=== PATIENT | female | born 1995 | race American Indian/Alaskan Native ===

== ENCOUNTER 2019-05-30 14:52 | Emergency (ER) | payer SELFPAY ==
[2019-05-30 15:11] VITALS: BP 107/69
--- NOTE | 2019-05-30 15:14 | Event Note ---
ED Screening Note Date of service: 05/30/19 Time: 15:09 ED Screening Note: This is a 23 y.o. F. that presents to the ER with chest pain and dizziness and physical for a job at the [employer]. LMP 05/11/2019 This initial assessment/diagnostic orders/clinical plan/treatment(s) is/are celis bject to change based on patients health status, clinical progression and re- assessment by fellow clinical providers in the ED. Further treatment and workup at subsequent clinical providers discretion. Patient/guardian urged not to elope from the ED as their condition may be serious if not clinically assessed and managed. Initial orders include: Accucheck 135 EKG CXR
--- NOTE | 2019-05-30 16:00 | XRay Report ---
CHEST 1 VIEW INDICATION: Chest Pain. COMPARISON: None FINDINGS: Support devices: None. Heart: Within normal limits. Lungs/Pleura: No acute air space or interstitial disease. Additional findings: None. IMPRESSION: No acute findings. Signer Name: Ronald Redd Jr, MD Signed: 05/30/2019 3:56 PM Workstation Name: [id number]
--- NOTE | 2019-05-30 18:43 | Emergency Department Report ---
HPI - General Chief Complaint: Chest Pain Time Seen by Provider: 05/30/19 15:09 - HPI HPI: 23-year-old female presents to the emergency department with complaint of having some midsternal chest pain, shortness of breath and lightheadedness that occurred earlier while doing some exercise for the first time in a long time. The patient also thinks that she could have been dehydrated. At the time of my examination she is asymptomatic. She denies any past medical history. She denies any tobacco or illicit drug use. No recent travel or sick contacts at home. She did not take anything for her symptoms prior to arrival today. ED Past Medical Hx - Past Medical History Previous Medical History?: No - Surgical History Past Surgical History?: No - Social History Smoking Status: Never Smoker Substance Use Type: None - Medications Home Medications: Home Medications Medication Instructions Recorded Confirmed Last Taken Type Acyclovir [Zovirax Tab] 800 mg PO Q4H #35 tab 06/20/13 Unknown Rx Ciprofloxacin [Cipro] 500 mg PO Q12H #20 tab 06/20/13 Unknown Rx metroNIDAZOLE [Flagyl] 2,000 mg PO ONCE #2 dose 06/20/13 Unknown Rx ED Review of Systems ROS: Stated complaint: CHEST PAIN/LIGHT HEADED Other details as noted in HPI Comment: All other systems reviewed and negative Constitutional: denies: chills, fever Respiratory: shortness of breath (resolved). denies: cough Cardiovascular: chest pain (resolved). denies: edema Gastrointestinal: denies: abdominal pain, vomiting Musculoskeletal: denies: back pain, arthralgia Neurological: denies: headache, weakness Physical Exam - Physical Exam Vital Signs: Vital Signs 05/30/19 15:09 Temperature 98.6 F Pulse Rate 104 H Respiratory 18 Rate Blood Pressure 107/69 O2 Sat by Pulse 100 Oximetry Physical Exam: GENERAL: The patient is well-developed well-nourished. HENT: Normocephalic. Atraumatic. Patient has moist mucous membranes. EYES: Extraocular motions are intact. NECK: Supple. Trachea is midline. CHEST/LUNGS: Clear to auscultation. There is no respiratory distress noted. HEART/CARDIOVASCULAR: Regular. There is no tachycardia. There is no murmur. ABDOMEN: There is no abdominal distention. SKIN: Skin is warm and dry. NEURO: The patient is awake, alert, and oriented. The patient is cooperative. The patient has no focal neurologic deficits. Normal speech. MUSCULOSKELETAL: There is no tenderness or deformity. There is no limitation range of motion. There is no evidence of acute injury. ED Course Vital Signs 05/30/19 15:09 Temperature 98.6 F Pulse Rate 104 H Respiratory 18 Rate Blood Pressure 107/69 O2 Sat by Pulse 100 Oximetry ED Medical Decision Making - EKG Data -: EKG Interpreted by Me EKG shows normal: sinus rhythm, axis, intervals, QRS complexes, ST-T waves Rate: normal - EKG Data When compared to previous EKG there are: previous EKG unavailable - Radiology Data Radiology results: image reviewed interpreted by me: Chest x-ray does not show any acute process. There are no pleural effusions, obvious pneumonia and there is no pneumothorax. - Medical Decision Making This patient presented with some midsternal chest pain and shortness of breath and lightheadedness while completing some type of physical therapy or new exercise. EKG did not show any signs of ST elevation [place], ischemia or dysrhythmia. Chest x-ray did not show any pneumothorax, focal consolidation, pneumonia, pleural effusions, or any other acute process. At the time of my examination the patient is asymptomatic. Vital signs stable throughout her ED course. She is very low risk for coronary artery disease. She will be discharged home to follow up with primary care and will return to the ER with any worsening of her symptoms or any acute distress. - Differential Diagnosis costochondritis, dysrhythmia, [place], GERD Critical Care Time: No Critical care attestation.: If time is entered above; I have spent that time in minutes in the direct care of this critically ill patient, excluding procedure time. ED Disposition Clinical Impression: Non-cardiac chest pain Disposition: DC-01 TO HOME OR SELFCARE Is pt being admited?: No Condition: Stable Instructions: Chest Pain (ED) Additional Instructions: Please follow-up with a primary care physician in the next few days. Return to the emergency department with any return or worsening of your symptoms, or with any acute distress. Referrals: RHINA MORELAND MD [Staff Physician] - 2-3 Days [facility] [Outside] - 2-3 Days Time of Disposition: 18:43
== END 2019-05-30 19:35 | disposition home or self-care (01) ==
LOC: ED 14:52
DX: R07.2 Precordial pain (principal); R06.02 Shortness of breath; R42 Dizziness and giddiness; Z79.899 Other long term (current) drug therapy
CPT/HCPCS: 71045; 82962; 93005; 93010

== ENCOUNTER 2020-01-06 17:05 | Emergency (ER) | payer SELFPAY ==
[2020-01-06 17:19] VITALS: BP 138/82
--- NOTE | 2020-01-06 17:45 | Emergency Department Report ---
Chief Complaint: Medical Clearance Stated Complaint: STD CHECK Time Seen by Provider: 01/06/20 17:43 - HPI History of Present Illness: Patient is a 24-year-old female presents emergency room for HIV testing and STD testing. She is currently asymptomatic. She denies any vaginal discharge, pelvic pain, abdominal pain, dysuria, nausea, vomiting, fever. She states that her partner had another partner with STD-like symptoms. She does not have any symptoms but just wants to be checked. No allergies to medications. Patient is presenting to the emergency room for asymptomatic routine STD testing Patient referred to clinics and the health department Patient given multiple resources Discussed in detail with patient strict return precautions Medical screening performed and there is no threat to life or limb at this time - Exam Vital Signs: Vital Signs 01/06/20 17:15 Temperature 99.2 F Pulse Rate 120 H Respiratory 18 Rate Blood Pressure 138/82 [Left] O2 Sat by Pulse 100 Oximetry MSE screening note: Focused history and physical exam performed. ED Disposition for MSE Clinical Impression: Concern about STD in female without diagnosis Disposition: MED SCREENING EXAM-LEFT Is pt being admited?: No Does the pt Need Aspirin: No Condition: Stable Instructions: Sexually Transmitted Diseases (ED), Safe Sex (ED) Additional Instructions: please follow up with a clinic or the health department for a full std panel. no sexual intercourse. have partner tested and treated as well. return to the emergency room for any new or worsening symptoms. [facility] [employer] Address: [address] [place] [id number] Referrals: [facility] [Outside] - 3-5 Days BERNADETTE HOANG MD [Staff Physician] - 3-5 Days [facility] [Provider Group] - 3-5 Days [facility] [Outside] - 3-5 Days Time of Disposition: 17:43 Print Language: IRISH
== END 2020-01-06 17:59 | disposition left against medical advice (07) ==
LOC: ED 17:05
DX: Z20.2 Contact with and (suspected) exposure to infections with a predominantly sexual mode of transmission (principal); Z53.21 Procedure and treatment not carried out due to patient leaving prior to being seen by health care provider